=== PATIENT | male | born 1960 | race Caucasian/White ===

== ENCOUNTER 2020-01-13 05:12 | Emergency (ER) | payer OTHER ==
[2020-01-13 05:18] VITALS: BMI 25.8
[2020-01-13] MEDS ORDERED: FAMOTIDINE 20 MG/50 ML IVPB 20 MG/50 ML MG IVPB ONE (05:34)
[2020-01-13] MEDS ORDERED: ACETAMINOPHEN 1000 MG/100 ML VIAL (NON FORMULARY) IVPB ONE (05:34)
[2020-01-13] MEDS ORDERED: SODIUM CHLORIDE 1,000 ML IV STA (05:34)
[2020-01-13] MEDS ORDERED: ONDANSETRON 4 MG/2 ML VIAL IVPUSH ONE (05:35)
[2020-01-13] MEDS ORDERED: ACETAMINOPHEN INJECTION 100 ML IVPB ONE (05:51)
--- NOTE | 2020-01-13 05:51 | PDOC ---
History of Present Illness - General Chief Complaint: Nausea/Vomiting Stated Complaint: VOMITING Time Seen by Provider: 01/13/20 05:39 History Source: Patient Exam Limitations: No Limitations, Clinical Condition - History of Present Illness Initial Comments: Stefano is a 59 yo M who denies having any pmh presents to the [facility] with 3 days of worsening generalized and epigastric abdominal pain associated with multiple episodes of nausea and NBNB vomiting. Patient thought it would go away and tried to tough it out but because the pain persisted and worsened he came into the ER for evaluation. Patient admits to smoking 1 pack of cigarettes daily for over 20 years and reports smoking around 40$ worth of marijuana daily. Also endorses a history of right inguinal hernia s/p surgical repair at [facility]. Had been having normal bowel movements. Patient tried taking 600 mg of motrin at home but states that he thinks it might have made his pain worse. Patient states his pain gets better when he stands or sits up but when he lies flat the pain is worse. - Had a normal bowel movement upon entry to ER which patient states was not diarrhea or constipation. Patient also experienced one episode of emesis upon enttry to the ER and the vomitus appeared dark yellow in color Denies relief of symptoms after taking hot showers. Denies drinking alcohol. Denies chest pain, SOB, difficulty breathing, back pain, headache, neck pain, blurry vision, dysuria, frequency, urgency PCP: None PSH: Right groin surgery Allergies: NKA, NKDA Social Hx: Daily cigarette and marijuana smoker. Denies other substance use including alcohol. Past History - Medical History Allergies/Adverse Reactions: Allergies Allergy/AdvReac Type Severity Reaction Status Date / Time No Known Allergies Allergy Verified 01/13/20 05:18 Home Medications: Ambulatory Orders Fluoxetine HCl [Prozac] 20 mg PO DAILY #30 capsule 09/18/19 Quetiapine Fumarate [Seroquel -] 100 mg PO HS #30 tablet 09/18/19 Docusate Sodium [Colace -] 100 mg PO BID #30 capsule 01/13/20 - Psycho-Social/Smoking History Smoking History: Current every day smoker Number of Cigarettes Smoked Daily: 3 Information on smoking cessation initiated: No - Substance Abuse Hx (Audit-C & DAST Scrn) How often the patient has a drink containing alcohol: Monthly or less Number of drinks the patient has on a typical day: 1 or 2 Score: In Men: 4 or > Positive; In Women: 3 or > Positive: 1 Screen Result (Pos requires Nsg. Audit-10AR): Negative In the last yr the pt used illegal drug/Rx for NonMed reason: No Score: Yes response is considered Positive: 0 Screen Result (Positive result requires Nsg. DAST-10): Negative Review of Systems - Review of Systems Able to Perform ROS?: Yes Comments:: CONSTITUTIONAL: Present: loss of appetite Absent: fever, chills, diaphoresis, generalized weakness, malaise HEENT: Absent: rhinorrhea, nasal congestion, throat pain, throat swelling, difficulty swallowing, mouth swelling, ear pain, eye pain, visual Changes CARDIOVASCULAR: Absent: chest pain, syncope, palpitations, irregular heart rate, lightheadedness, peripheral edema RESPIRATORY: Absent: cough, shortness of breath, dyspnea with exertion, orthopnea, wheezing, stridor, hemoptysis GASTROINTESTINAL: Present: Abdominal pain, nausea, vomiting Absent: abdominal distension, diarrhea, constipation, melena, hematochezia GENITOURINARY: Absent: dysuria, frequency, urgency, hesitancy, hematuria, flank pain, genital pain MUSCULOSKELETAL: Absent: myalgia, arthralgia, joint swelling SKIN: Absent: rash, itching, pallor HEMATOLOGIC/IMMUNOLOGIC: Absent: easy bleeding, easy bruising, lymphadenopathy, frequent infections ENDOCRINE: Absent: unexplained weight gain, unexplained weight loss, heat intolerance, cold intolerance NEUROLOGIC: Absent: headache, focal weakness or paresthesias, dizziness, unsteady gait, seizure, mental status changes, bladder or bowel incontinence PSYCHIATRIC: Absent: anxiety, depression, suicidal or homicidal ideation, hallucinations. *Physical Exam - Vital Signs Last Vital Signs Temp Pulse Resp BP Pulse Ox 98.6 F 59 L 20 141/82 98 01/13/20 05:13 01/13/20 05:13 01/13/20 05:13 01/13/20 05:13 01/13/20 05:13 - Physical Exam GENERAL: Patient appears uncomfortable. Well developed, well nourished. Awake and alert. HEENT: Normocephalic, atraumatic. PERRLA, EOMI. Sclera are non-icteric. Moist mucous membranes. Oropharynx is clear. NECK: Supple. Full ROM. No JVD. CARDIOVASCULAR: Regular rate and rhythm. No murmurs, rubs, or gallops. Distal pulses are 2+ and symmetric. PULMONARY: No evidence of respiratory distress. Lungs clear to auscultation bilaterally. No wheezing, rales or rhonchi. ABDOMINAL: There is lynn-umbilical and left sided abdominal TTP. The patient winces upon palpation anywhere in his abdomen. Overall the abdomen is still soft and not rigid. There is no rebound or guarding. No organomegaly. Normoactive bowel sounds. MUSCULOSKELETAL Normal range of motion at all joints. No bony deformities or tenderness. No CVA tenderness. EXTREMITIES: No cyanosis. No clubbing. No edema. No calf tenderness. SKIN: Warm and dry. Normal capillary refill. No rashes. No jaundice. NEUROLOGICAL: Alert, awake, appropriate. Cranial nerves 2-12 intact. No deficits to light touch in face, upper extremities and lower extremities. No motor deficits in the in face, upper extremities and lower extremities. Normal speech. Gait is normal without ataxia. PSYCHIATRIC: Cooperative. Good eye contact. Appropriate mood and affect. ED Treatment Course - LABORATORY CBC & Chemistry Diagram: 01/13/20 06:04 01/13/20 06:04 - RADIOLOGY Radiology Studies Ordered: Category Date Time Status ABDOMEN & PELVIS CT WITH CONTR [CT] Stat CT Scan 01/13/20 05:39 Ordered Medical Decision Making - Medical Decision Making Stefano is a 59 yo M who denies having any pmh presents to the [facility] with 3 days of worsening generalized and epigastric abdominal pain associated with multiple episodes of nausea and NBNB vomiting. Patient thought it would go away and tried to tough it out but because the pain persisted and worsened he came into the ER for evaluation. Patient admits to smoking 1 pack of cigarettes daily for over 20 years and reports smoking around 40$ worth of marijuana daily. Also endorses a history of right inguinal hernia s/p surgical repair at [facility]. Had been having normal bowel movements. Patient tried taking 600 mg of motrin at home but states that he thinks it might have made his pain worse. Patient states his pain gets better when he stands or sits up but when he lies flat the pain is worse. Vital Signs Temp Pulse Resp BP Pulse Ox 98.6 F 59 L 20 141/82 98 01/13/20 05:13 01/13/20 05:13 01/13/20 05:13 01/13/20 05:13 01/13/20 05:13 DDx IBNLT: Pancreatitis, diverticulitis, colitis, appendicitis, cholecystitis, biliary colic, gastritis, GERD, Cannabinoid hyperemesis, electrolyte/metabolic disturbance, UTI, pylo, renal colic, less likely ACS. Plan: Labs, Urine, CTAP, EKG, IV hydration, GI cocktail, analgesia, re-assess EKG: NS rate of 56, pr 128, narrow complexes, qrs 104, normal axis, no hypertrophy, no ST elevations or depressions, no Q waves, QTc [address]ing out patient to Dr. Girard for completion of ED workup, lab/urine/CT results, further care and final ED disposition Discharge - Discharge Information Problems reviewed: Yes Clinical Impression/Diagnosis: Abdominal pain with vomiting Condition: Stable Disposition: HOME - Admission No - Additional Discharge Information Prescriptions: Docusate Sodium [Colace -] 100 mg PO BID #30 capsule - Follow up/Referral Referrals: Brian Isbell MD [Staff Physician] - - Patient Discharge Instructions Patient Printed Discharge Instructions: DI for Abdominal Pain-Adult, DI for Vomiting -- Adult - Post Discharge Activity
--- NOTE | 2020-01-13 06:12 | PDOC ---
Attending Attestation - Resident Resident Name: Bry Trinidad - ED Attending Attestation I have performed the following: I have examined & evaluated the patient, The case was reviewed & discussed with the resident, I agree w/resident's findings & plan - HPI HPI: 01/13/20 06:10 see resident hpi - Physicial Exam PE: 01/13/20 06:10 see resident exam - Medical Decision Making 01/13/20 06:10 59-year-old male with complaints of diffuse abdominal pain and vomiting Patient does have a significant history of daily marijuana use Plan for labs, IV fluids antiemetics and CT scan abdomen pelvis Case signed out to dayshift pending results and reevaluation Discharge - Discharge Information Problems reviewed: Yes Clinical Impression/Diagnosis: Abdominal pain with vomiting - Follow up/Referral - Patient Discharge Instructions - Post Discharge Activity
[2020-01-13 07:48] LABS: BASO % 0.4 % (0-2.0); EOS % 1.4 % (0-4.5); HEMATOCRIT 44.7 % (35.4-49); HEMOGLOBIN 14.7 GM/dL (11.7-16.9); LYMPH % 29.2 % (8-40); MCH 28.9 pg (25.7-33.7); MCHC 32.7 g/dl (32.0-35.9); MEAN CELL VOLUME 88.3 fl (80-96); MONO % 9.1 % (3.8-10.2); NEUT % 59.9 % (42.8-82.8); RBC 5.07 M/mm3 (4.00-5.60); RDW 13.8 % (11.9-15.9); WHITE BLOOD COUNT 9.4 K/mm3 (4.0-10.0)
[2020-01-13 07:51] LABS: ALBUMIN 3.7 g/dl (3.4-5.0); BILIRUBIN,TOTAL 0.2 mg/dL (0.2-1); BLOOD UREA NITROGEN 14.4 mg/dL (7-18); CALCIUM 8.7 mg/dL (8.5-10.1); CREATININE 1.2 mg/dL (0.55-1.3); POTASSIUM 3.9 mmol/L (3.5-5.1); TOT PROT 6.7 g/dl (6.4-8.2)
[2020-01-13 08:01] LABS: PLATELET COUNT 258 K/MM3 (134-434)
--- NOTE | 2020-01-13 10:36 | EKG ---
Test Reason : Blood Pressure : / mmHG Vent. Rate : 056 BPM Atrial Rate : 056 BPM P-R Int : 128 ms QRS Dur : 104 ms QT Int : 424 ms P-R-T Axes : 051 055 057 degrees QTc Int : 409 ms SINUS BRADYCARDIA OTHERWISE NORMAL ECG NO PREVIOUS ECGS AVAILABLE Confirmed by Primitivo Parker MD ([id number]) on 01/13/2020 10:35:40 AM Referred By: Confirmed By:Primitivo Parker MD
[2020-01-13 11:06] VITALS: BP 118/66; PULSE 55; TEMP 98.7
--- NOTE | 2020-01-13 11:10 | PDOC ---
*Physical Exam - Vital Signs Last Vital Signs Temp Pulse Resp BP Pulse Ox 98.6 F 65 18 110/74 98 01/13/20 05:13 01/13/20 09:24 01/13/20 09:24 01/13/20 09:24 01/13/20 09:24 - Physical Exam 01/13/20 11:05 Patient endorsed to me by Dr. chandler. Patient is 59-year-old male with history of heavy marijuana and tobacco smoking who presented with severe abdominal pain. In the ER, patient is awake and alert, resting comfortably, tolerating p.o. Really repeat abdominal exam reveals no focal tenderness. CT shows no evidence of acute pathology, small fat-containing hernias noted, also thickening of the bladder wall is noted. I have advised the patient of CT findings, will discharge with follow-up. ED Treatment Course - LABORATORY CBC & Chemistry Diagram: 01/13/20 06:04 01/13/20 06:04 - ADDITIONAL ORDERS Additional order review: Laboratory Results 01/13/20 01/13/20 01/13/20 06:04 06:04 06:04 Sodium 142 Potassium 3.9 Chloride 107 Carbon Dioxide 31 Anion Gap 4 L BUN 14.4 Creatinine 1.2 Est GFR (CKD-EPI)AfAm 77.33 Est GFR (CKD-EPI)NonAf 66.72 Random Glucose 98 Lactic Acid 1.1 Calcium 8.7 Phosphorus 4.0 Total Bilirubin 0.2 AST 24 ALT 27 Alkaline Phosphatase 98 Troponin I < 0.02 Total Protein 6.7 Albumin 3.7 Lipase 225 01/13/20 06:04 RBC 5.07 MCV 88.3 MCHC 32.7 RDW 13.8 MPV 8.0 Neutrophils % 59.9 Lymphocytes % 29.2 Monocytes % 9.1 Eosinophils % 1.4 Basophils % 0.4 - Medications Given in the ED: ED Medications Discontinued Medications Generic Name Dose Route Start Last Admin Trade Name Freq PRN Reason Stop Dose Admin Acetaminophen 1,000 mg 01/13/20 05:34 01/13/20 06:11 Ofirmev Injection - IVPB 01/13/20 05:35 1,000 mg ONCE ONE Administration Sodium Chloride 1,000 mls @ 1,000 mls/hr 01/13/20 05:34 01/13/20 06:10 Normal Saline - IV 01/13/20 06:33 1,000 mls/hr ASDIR STA Administration Famotidine/Sodium Chloride 20 mg in 50 mls @ 100 mls/hr 01/13/20 05:34 01/13/20 06:27 Pepcid 20 Mg Premixed Ivpb - IVPB 01/13/20 06:03 100 mls/hr ONCE ONE Administration Ondansetron HCl 4 mg 01/13/20 05:35 01/13/20 06:11 Zofran Injection IVPUSH 01/13/20 05:36 4 mg ONCE ONE Administration Discharge - Discharge Information Problems reviewed: Yes Clinical Impression/Diagnosis: Abdominal pain with vomiting Condition: Stable Disposition: HOME - Follow up/Referral Referrals: Brian Isbell MD [Staff Physician] - - Patient Discharge Instructions Patient Printed Discharge Instructions: DI for Vomiting -- Adult, DI for Abdominal Pain-Adult - Post Discharge Activity
[2020-01-13 11:55] LABS: PH,URINE 7.5 (5.0-8.0); URINE APPEARANCE CLEAR; URINE BILIRUBIN NEGATIVE (NEGATIVE); URINE COLOR YELLOW; URINE GLUCOSE (UA) NEGATIVE (NEGATIVE); URINE KETONE NEGATIVE (NEGATIVE); URINE LEUK ESTERASE NEGATIVE (NEGATIVE); URINE NITRITE NEGATIVE (NEGATIVE); URINE PROTEIN NEGATIVE (NEGATIVE); URINE UROBILINOGEN 0.2 mg/dL (0.2-1.0)
[2020-01-13 11:58] LABS: MAGNESIUM 2.4 mg/dL (1.8-2.4)
== END 2020-01-13 11:17 | disposition home or self-care (01) ==
LOC: JER 05:12
PROC: 3E033GC Introduction of Other Therapeutic Substance into Peripheral Vein, Percutaneous Approach (ICD-10-PCS; principal; 2020-01-13)
DX: R10.13 Epigastric pain (principal); R11.10 Vomiting, unspecified
CPT/HCPCS: 36415; 74177-TC; 80053; 81003; 83605; 83690; 83735; 84100; 84484; 85025; 87086; 93005; 93010; 99285-25; J0131; Q9967